=== PATIENT | female | born 1985 | race Two or more races ===

== ENCOUNTER → 2016-10-27 | Outpatient (REF) | payer MEDICARE, OTHER | LOC: M SFHCLERA 11:14 | PROVIDERS: ATTEND Nurse Practitioner Family | DX: R50.9 Fever, unspecified (principal) ==

== ENCOUNTER 2017-05-19 09:26 | Outpatient (CLI) | payer MEDICARE, OTHER ==
[2017-05-19 12:12] LABS: APPEARANCE, URINE HAZY (CLEAR); BACTERIA, URINE AUTO NEGATIVE (NEGATIVE); BILIRUBIN, URINE AUTO NEGATIVE (NEGATIVE); BLOOD, URINE BLOOD NEGATIVE (NEGATIVE); COLOR, URINE YELLOW (YELLOW); GLUCOSE, URINE (UA) AUTO NEGATIVE (NEGATIVE); KETONE, URINE AUTO NEGATIVE (NEGATIVE); LEUKOCYTE ESTERASE, URINE AUTO 2+ (NEGATIVE); MUCUS, URINE SMALL (NEGATIVE); NITRITE, URINE AUTO NEGATIVE (NEGATIVE); PROTEIN, URINE AUTO NEGATIVE (NEGATIVE); RBC, URINE AUTO 1 /HPF (0-3); SPECIFIC GRAVITY URINE AUTO 1.011 (1.002-1.035); SQUAMOUS EPITHELIAL CELL UR AU 9 /HPF (0-6); UROBILINOGEN, URINE AUTO 0.2 mg/dL (0.0-2.0); WBC, URINE AUTO 2 /HPF (0-3)
== END 2017-05-19 13:53 | disposition home or self-care (01) ==
LOC: M LDO 09:26
DX: O47.9 False labor, unspecified (principal); Z3A.00 Weeks of gestation of pregnancy not specified; Z79.899 Other long term (current) drug therapy
CPT/HCPCS: 59025

== ENCOUNTER 2017-05-27 05:34 | Inpatient (IN) | payer MEDICARE, OTHER ==
[2017-05-27 06:17] LABS: HEMATOCRIT 35.5 % (36.0-47.0); HEMOGLOBIN 12.2 g/dl (12.0-16.0); MEAN CORPUSCULAR HEMOGLOBIN 31.4 pg (27.0-33.0); MEAN CORPUSCULAR HGB CONC 34.4 g/dl (32.0-36.5); MEAN CORPUSCULAR VOLUME 91.5 fl (80.0-96.0); PLATELET COUNT, AUTOMATED 365 10^3/uL (150-450); RED BLOOD COUNT 3.88 10^6/uL (4.00-5.40); WHITE BLOOD COUNT 14.4 10^3/uL (4.0-10.0)
[2017-05-27] MEDS: LACTATED RINGER'S 1000 ML IV (06:23)
[2017-05-27 06:44] LABS: AMPHETAMINES URINE REFLEX NEGATIVE (NEGATIVE); BARBITURATES URINE REFLEX NEGATIVE (NEGATIVE); BENZODIAZEPINES URINE REFLEX NEGATIVE (NEGATIVE); CANNABINOIDS URINE REFLEX NEGATIVE (NEGATIVE); COCAINE METABOLITE URINE REFLE NEGATIVE (NEGATIVE); METHADONE URINE REFLEX NEGATIVE (NEGATIVE); OPIATES URINE REFLEX NEGATIVE (NEGATIVE); PHENCYCLIDINE URINE REFLEX NEGATIVE (NEGATIVE)
[2017-05-27] MEDS ORDERED: MORPHINE PRES-FREE INJ 10 MG/10 ML VIAL (J2274) As Ordered (07:24)
[2017-05-27] MEDS ORDERED: OXYTOCIN INJ 10 UNITS/ML VIAL (J2590) As Ordered ×5 (07:27→08:21)
[2017-05-27] MEDS: BICITRA 30ML SOLN UDC PO (07:31)
[2017-05-27] MEDS ORDERED: PHENYLephrine HCL 500 MCG/5 ML (100MCG/ML) SYRINGE (J2370) As Ordered (07:54)
[2017-05-27] MEDS ORDERED: KETOROLAC 60 MG/2 ML VIAL (J1885) As Ordered (07:54)
[2017-05-27] MEDS ORDERED: ONDANSETRON 4MG/2ML VIAL (J2405) As Ordered (07:54)
[2017-05-27] MEDS: LR 1,000 ML IV ×4 (08:49→16:49)
[2017-05-27] MEDS ORDERED: DOCUSATE SODIUM 100 MG CAP PO (09:00)
[2017-05-27] MEDS ORDERED: fentaNYL 100 MCG/2 ML INJECTION (J3010) IV (09:00)
[2017-05-27] MEDS: PRENATAL VITAMINS CHEWABLE TABLET PO (09:00)
[2017-05-27] MEDS ORDERED: MOM 30ML SUSPENSION UDC PO (09:00)
[2017-05-27] MEDS ORDERED: RHOGAM 300 MCG (1500 IU) INJ (J2790) IM (09:00)
[2017-05-27] MEDS ORDERED: NALBUPHINE HCL 10 MG/ML AMP (J2300) IV ×2 (09:00→10:45)
[2017-05-27] MEDS ORDERED: HYDROmorphone HCL 1 MG/ML SYRINGE (J1170) IV (09:00)
[2017-05-27] MEDS ORDERED: METHYLERGONOVINE MALEATE 0.2 MG TAB PO (09:00)
[2017-05-27] MEDS ORDERED: ONDANSETRON 4MG/2ML VIAL (J2405) IV ×3 (09:00→10:45)
[2017-05-27] MEDS ORDERED: PERCOCET 5MG/325MG TAB PO ×3 (09:00)
[2017-05-27] MEDS ORDERED: MEPERIDINE INJ 25 MG/ML VIAL (J2175) IV (09:00)
[2017-05-27] MEDS: MEASLES,MUMPS,RUBELLA VACCINE INJ (MMR-II) (90707) SC (10:30)
[2017-05-27] MEDS ORDERED: NALOXONE INJ 0.4 MG/1 ML VIAL (J2310) IV ×2 (10:45)
[2017-05-27] MEDS: PROMETHAZINE 25 MG TAB PO (10:53)
[2017-05-27] MEDS: KETOROLAC 30 MG/ML VIAL (J1885) IV ×2 (15:18→20:42)
[2017-05-27] MEDS: METOCLOPRAMIDE INJ 10MG/2ML VIAL (J2765) IV (16:32)
[2017-05-28] MEDS: LR 1,000 ML IV ×2 (00:54→08:49)
[2017-05-28] MEDS: KETOROLAC 30 MG/ML VIAL (J1885) IV ×2 (02:18→08:38)
[2017-05-28 06:42] LABS: HEMATOCRIT 31.3 % (36.0-47.0); HEMOGLOBIN 10.7 g/dl (12.0-16.0); MEAN CORPUSCULAR HEMOGLOBIN 31.7 pg (27.0-33.0); MEAN CORPUSCULAR HGB CONC 34.2 g/dl (32.0-36.5); MEAN CORPUSCULAR VOLUME 92.6 fl (80.0-96.0); PLATELET COUNT, AUTOMATED 292 10^3/uL (150-450); RED BLOOD COUNT 3.38 10^6/uL (4.00-5.40); WHITE BLOOD COUNT 15.8 10^3/uL (4.0-10.0)
[2017-05-28] MEDS: PRENATAL VITAMINS CHEWABLE TABLET PO (08:38)
[2017-05-28] MEDS: IBUPROFEN 800 MG TAB PO ×2 (15:42→23:18)
[2017-05-28] MEDS: SIMETHICONE 80 MG CHEW TAB PO (23:18)
[2017-05-29] MEDS: IBUPROFEN 800 MG TAB PO (07:58)
[2017-05-29] MEDS: PRENATAL VITAMINS CHEWABLE TABLET PO (07:58)
[2017-05-29] MEDS: SIMETHICONE 80 MG CHEW TAB PO (07:59)
== END 2017-05-29 14:25 | disposition home or self-care (01) | DRG 765 ==
LOC: M LDI 05:34 → M OBS 10:55
PROVIDERS: Student in an Organized Health Care Education/Training Program
PROC: 10D00Z1 Extraction of Products of Conception, Low, Open Approach (ICD-10-PCS; principal; 2017-05-27 07:30)
PROC: 0UB70ZZ Excision of Bilateral Fallopian Tubes, Open Approach (ICD-10-PCS; 2017-05-27 07:30)
DX: O34.211 Maternal care for low transverse scar from previous cesarean delivery (principal); O99.354 Diseases of the nervous system complicating childbirth; Z3A.39 39 weeks gestation of pregnancy; Z30.2 Encounter for sterilization; O99.334 Smoking (tobacco) complicating childbirth; F17.210 Nicotine dependence, cigarettes, uncomplicated; O99.52 Diseases of the respiratory system complicating childbirth; J45.20 Mild intermittent asthma, uncomplicated; O24.420 Gestational diabetes mellitus in childbirth, diet controlled; G35 Multiple sclerosis; Z37.0 Single live birth

== ENCOUNTER → 2018-10-02 | Outpatient (REF) | payer MEDICARE, OTHER ==
[~2018-10-02] MED LIST: ADV250INH INH; ADVA230A INH; ALB2.5NEB INH; COLA100C5 PO; MAPA500T2 PO; MOTR200T44 PO; NITR100C39 PO; OXYC1TAB23 PO; PHEN1SUP6 PO; PRENTAB9 PO; SING10TA32 PO; TUMS500C PO; VENTAER INH
[2018-10-02 21:01] LABS: CHLAMYDIA DNA AMPLIFICATION NEGATIVE (NEGATIVE); GC DNA AMPLIFICATION NEGATIVE (NEGATIVE)
== END ==
LOC: M SFHCLERA 12:30
PROVIDERS: ATTEND Nurse Practitioner Family
DX: R30.0 Dysuria (principal)
CPT/HCPCS: 81002; 81025; 87088; 87186; 87661; G0463

== ENCOUNTER → 2018-11-22 | Outpatient (REF) | payer MEDICARE, OTHER | LOC: M SFHCLERA 15:46 | PROVIDERS: ATTEND Family Medicine | DX: R30.0 Dysuria (principal) | CPT/HCPCS: 81002; 87088; 87186; G0463 ==

== ENCOUNTER → 2018-12-27 | Outpatient (REF) | payer MEDICARE, OTHER ==
[2018-12-27 18:20] LABS: CHLAMYDIA DNA AMPLIFICATION NEGATIVE (NEGATIVE); GC DNA AMPLIFICATION NEGATIVE (NEGATIVE)
== END ==
LOC: M SFHCLERA 13:54
PROVIDERS: ATTEND Nurse Practitioner Family
DX: N89.8 Other specified noninflammatory disorders of vagina (principal)
CPT/HCPCS: 81002; 81025; 87070; 87077; 87086; 87186; 87661; G0463